=== PATIENT | female | born 1985 | race African-American/Black ===

== ENCOUNTER → 2019-07-25 | Emergency (ER) | payer OTHER, MEDICAID ==
[~2019-07-25] VITALS: Ht 167.6 cm; Wt 72.6 kg
[2019-07-25 21:41] VITALS: BP 118/98
== END | disposition home or self-care (01) ==
LOC: ER 21:17
DX: S60.414A Abrasion of right ring finger, initial encounter (principal); V43.62XA Car passenger injured in collision with other type car in traffic accident, initial encounter; Y93.89 Activity, other specified; Y92.89 Other specified places as the place of occurrence of the external cause; Y99.8 Other external cause status